=== PATIENT | female | born 1985 | race Two or more races ===

== ENCOUNTER → 2019-07-19 | Outpatient (CLI) | payer OTHER | END | disposition home or self-care (01) | LOC: PRENATAL 11:00 → EDBD 11:14 → PRENATAL 11:14 | DX: O34.211 Maternal care for low transverse scar from previous cesarean delivery (principal); O36.80X1 Pregnancy with inconclusive fetal viability, fetus 1 ==

== ENCOUNTER → 2019-09-12 | Outpatient (CLI) | payer OTHER | END | disposition home or self-care (01) | LOC: PRENATAL 13:00 | PROVIDERS: ATTEND Obstetrics & Gynecology | DX: O35.3XX1 Maternal care for (suspected) damage to fetus from viral disease in mother, fetus 1 (principal); O34.211 Maternal care for low transverse scar from previous cesarean delivery ==

== ENCOUNTER 2020-01-16 14:27 | Inpatient (IN) | payer OTHER ==
[~2020-01-16] VITALS: Ht 170.2 cm; Wt 3.6 kg
[2020-01-16] MEDS ORDERED: ZYRTEC10 M3 PO (19:20)
[2020-01-16] MEDS ORDERED: PRENATAL 19 CH1 EAC1 PO (19:20)
== END 2020-01-19 11:38 | disposition home or self-care (01) | DRG 785 ==
LOC: OB/GYN 14:27 → LDR 14:27 → OB/GYN 19:24
PROVIDERS: ADMIT Obstetrics & Gynecology; ATTEND Obstetrics & Gynecology
PROC: 0UB70ZZ Excision of Bilateral Fallopian Tubes, Open Approach (ICD-10-PCS; 2020-01-16)
PROC: 4A1HXFZ Monitoring of Products of Conception, Cardiac Rhythm, External Approach (ICD-10-PCS; 2020-01-16)
PROC: 3E033VJ Introduction of Other Hormone into Peripheral Vein, Percutaneous Approach (ICD-10-PCS; 2020-01-16)
PROC: 10D00Z1 Extraction of Products of Conception, Low, Open Approach (ICD-10-PCS; principal; 2020-01-16 17:00)
DX: O41.03X0 Oligohydramnios, third trimester, not applicable or unspecified (principal); O34.211 Maternal care for low transverse scar from previous cesarean delivery; Z3A.38 38 weeks gestation of pregnancy; Z37.0 Single live birth; Z30.2 Encounter for sterilization; Z20.828 Contact with and (suspected) exposure to other viral communicable diseases; N83.8 Other noninflammatory disorders of ovary, fallopian tube and broad ligament